=== PATIENT | female | born 1995 | race Caucasian/White ===

== ENCOUNTER 2019-03-21 23:05 | Emergency (ER) | payer OTHER ==
[~2019-03-21] VITALS: Ht 167.6 cm; Wt 136.1 kg
--- NOTE | 2019-03-21 23:10 | NUR ---
Placed in room 06 . Placed on quality assurance monitor final, blood pressure machine and pulse oximeter. To gown for exam. Side rails up.
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
[2019-03-21 23:37] VITALS: BP_SYST 101
--- NOTE | 2019-03-22 00:16 | NUR ---
ER Dr. Stewart at bedside examining patient.
[2019-03-22 00:56] LABS: BASOPHILS # (AUTO) 0.1 K/uL (0.0-0.2); BASOPHILS % (AUTO) 0.5 % (0.0-2.0); EOSINOPHILS # (AUTO) 0.1 K/uL (0.0-0.4); EOSINOPHILS % (AUTO) 0.4 % (0.0-4.0); HEMATOCRIT 38.4 % (36-48); HEMOGLOBIN 13.1 g/dL (12.0-16.0); LYMPHOCYTES # (AUTO) 2.6 K/uL (1.0-5.5); MEAN CORPUSCULAR HEMOGLOBIN 28 pg (27-31); MEAN CORPUSCULAR HGB CONC 34 % (32-36); MEAN CORPUSCULAR VOLUME 82 fL (79.0-98.0); MONOCYTES # (AUTO) 1.1 K/uL (0.0-1.0); MONOCYTES % (AUTO) 6.7 % (1.7-9.3); NEUTROPHILS # (AUTO) 12.5 K/uL (1.8-7.7); NEUTROPHILS % (AUTO) 76.4 % (40.0-70.0); PLATELET COUNT (AUTO) 350 K/uL (130-430); RED BLOOD CELL COUNT(AUTO) 4.68 MIL/uL (4.2-6.2); RED CELL DISTRIBUTION WIDTH 14.4 % (9.0-15.0); WHITE BLOOD COUNT (AUTO) 16.3 K/uL (4.8-10.8)
[2019-03-22 01:13] LABS: CALCIUM 9.4 mg/dL (8.4-11.0); CREATININE 1.1 mg/dL (0.55-1.30); POTASSIUM 3.9 mmol/L (3.5-5.1)
[2019-03-22 01:19] LABS: ALBUMIN 3.4 g/dL (3.4-4.8); TOTAL BILIRUBIN 0.3 mg/dL (0.0-1.0)
--- NOTE | 2019-03-22 01:35 | NUR ---
Pt wanted to speak with nurse in regards to missing her wallet and set of dodge keys. Pt states she said that one employees have her keys. Called [facility] and spoke with Tere. Tere called the staff that brought patient here and they stated "everything was placed in the back of the room." Notified patient and looked in the room. Unable to find wallet or keys. Asked patient to check again in her purse, and she stated "I already checked it 4 times." Pt asked to call the ambulance company back.
--- NOTE | 2019-03-22 01:40 | NUR ---
Called [facility] back and spoke with Theresa and explained the situation again. Per Theresa, he will give me a call back.
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
--- NOTE | 2019-03-22 02:00 | NUR ---
Checked patient's purse, no keys or wallet to be found.
[2019-03-22 02:20] VITALS: BP_SYST 110
--- NOTE | 2019-03-22 02:20 | NUR ---
Patient given written and verbal discharge instructions and verbalizes understanding. ER MD discussed with patient the results and treatment provided. Patient in stable condition. ID arm band removed. IV catheter removed intact and dressing applied, no active bleeding. NO RX given. Patient educated on pain management and to follow up with PMD. Pain Scale 0/10 Opportunity for questions provided and answered. Medication side effect fact sheet provided.
== END 2019-03-22 02:20 | disposition home or self-care (01) ==
LOC: SED 23:05
DX: I47.1 Supraventricular tachycardia (principal); F41.9 Anxiety disorder, unspecified; K21.9 Gastro-esophageal reflux disease without esophagitis; Z88.1 Allergy status to other antibiotic agents
CPT/HCPCS: 36415; 71045; 80053; 83880; 84484; 85025; 93005; 99283; 99284